=== PATIENT | female | born 1965 | race Caucasian/White ===

== ENCOUNTER 2018-04-05 17:54 | Emergency (ER) | payer MEDICAID ==
[~2018-04-05] VITALS: Ht 152.4 cm; Wt 78.2 kg
[2018-04-05 18:13] VITALS: BP 152/82
--- NOTE | 2018-04-05 18:39 | NUR ---
DR LOUIS NOTIFIED, PT AMBULATED BACK TO THE LOBBY PER
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
--- NOTE | 2018-04-05 19:48 | NUR ---
PT AMBULATED TO ER BED 08
[2018-04-05] MEDS ORDERED: SILVER SULFADIAZINE 1% 50 GM JAR TP ONE (21:00)
[2018-04-05] MEDS ORDERED: KETOROLAC 60 MG/2 ML VIAL IM ONE (21:00)
[2018-04-05 21:30] VITALS: BP 144/68
--- NOTE | 2018-04-05 21:30 | NUR ---
Patient discharged with v/s stable, decreased pain, CMS intact. Written and verbal after care instructions given and explained. Patient alert, oriented and verbalized understanding of instructions. Ambulatory with steady gait. All questions addressed prior to discharge. ID band removed. Patient advised to follow up with PMD. Rx of MOTRIN, KEFLEX, NORCO given. Patient educated on indication of medication including possible reaction and side effects. Opportunity to ask questions provided and answered.
== END 2018-04-05 21:30 | disposition home or self-care (01) ==
LOC: MED 17:54
DX: T22.011A Burn of unspecified degree of right forearm, initial encounter (principal); L03.113 Cellulitis of right upper limb; X13.1XXA Other contact with steam and other hot vapors, initial encounter; Y93.89 Activity, other specified; Y92.89 Other specified places as the place of occurrence of the external cause; Y99.8 Other external cause status
CPT/HCPCS: 16000; 96372; 99284; J1885